=== PATIENT | male | born 1960 | race Caucasian/White ===

== ENCOUNTER 2020-05-16 07:24 | Day surgery (SDC) | payer OTHER ==
--- NOTE | 2020-05-12 12:23 | RAD REPORT ---
EXAM DESCRIPTION: Jayashree Sue (2 Views)05/12/2020 12:16 pm CLINICAL HISTORY: Preop for hernia repair COMPARISON: 2009 FINDINGS: The lungs appear clear of acute infiltrate. The heart is normal size IMPRESSION: No acute abnormalities displayed
[2020-05-12 12:45] LABS: Absolute Lymphocytes (CBC) 1.4 K/uL (0.7-4.9); Basophils % 1.3 % (0-1.3); Hematocrit 43.5 % (39.6-49.0); Lymphocytes % 22.2 % (15.3-44.8); MPV 9.6 fL (7.6-11.3); RBC Red Blood Cell Count 4.96 M/uL (4.33-5.43)
[2020-05-12 12:59] LABS: Potassium 4.1 mmol/L (3.5-5.1)
[2020-05-16] MEDS ORDERED: Ringers Lactate 1,000 ML IV ONE (07:46)
[2020-05-16] MEDS ORDERED: CEFAZOLIN/SWI 1gm 1 GM/10 ML SYR ONE (08:20)
[2020-05-16] MEDS ORDERED: FENTANYL CITR 100 MCG/2 ML ONE (08:32)
[2020-05-16] MEDS ORDERED: propofoL 200 MG/20 ML VIAL IV ONE (08:32)
[2020-05-16] MEDS ORDERED: GLYCOPYRROLATE 0.2 MG/ML SYR ONE (08:33)
[2020-05-16] MEDS ORDERED: MIDAZOLAM HCL 2 MG/2 ML INJ ONE (08:33)
[2020-05-16] MEDS ORDERED: EPHEDRINE SULF 50 MG/ML VIAL ONE (08:33)
[2020-05-16] MEDS ORDERED: LIDOCAINE 2% MPF 5 ML VIAL ONE (08:33)
--- NOTE | 2020-05-16 09:04 | P.BOP ---
Preoperative diagnosis: incarcerated ulcerated infected umbilical hernia Postoperative diagnosis: same Primary procedure: Open repair of incarcerated ulcerated umbilical hernia [employer] Drill Operator: NADEEM MERRILL (WASTE HAND) Estimated blood loss: <10cc Specimen: umbilical hernia sac and content Findings: ulcerated umbilical hernia with incarcerated omentum Anesthesia: General Complications: None Transferred to: Recovery Room Condition: Good
[2020-05-16] MEDS: HYDROMORPHONE HCL 1 MG/ML INJ ONE ×4 (09:21→09:40)
[2020-05-16] MEDS ORDERED: CODEINE 30MG/APAP 300MG TAB ONE (10:16)
[2020-05-16] MEDS ORDERED: ONDANSETRON 4 MG/2 ML VIAL ONE (11:10)
--- NOTE | 2020-05-16 11:44 | OP ---
Date of Procedure: 05/16/2020 Surgeon: Luís Reynoso MD Hog Sticker: Lary Raza. Preoperative Diagnosis: Incarcerated, ulcerated, infected umbilical hernia. Postoperative Diagnosis: Incarcerated, ulcerated, infected umbilical hernia. Procedure: Open repair of incarcerated, ulcerated, umbilical hernia. Specimen: Umbilical hernia sac and content including the ulceration of the skin. Finding: Patient has an incarcerated umbilical hernia, the pressure of that broke the skin causing u lceration and erythema over the area. Anesthesia: General plus local. Indications: This is a case of a 60-year-old who comes to us with several problems. He has umbilica l hernia. He has incarceration. He has also cellulitis over the area and ulceration. It is tender, and needs to be excised and repaired. The patient was placed on antibiotics for the last few days t hat has not changed much of yet. So, we proceed accordingly. The benefits, alternatives, and risks of repair of an incarcerated umbilical hernia fully explained which include, but not limited to infec tion, bleeding, damage to adjacent structures, anesthesia complication, recurrence, [place] and even . He also understands this may not relieve symptoms. He might need more than one surgical intervent ion. He understands we might have to use mesh in that area due to the area that is not completely cl amado. There is an extra risks of the mesh placement, which include also possible infection and contam ination of the mesh if used. He understand to be compliant with treatment after the surgery. He sig hari a consent. Description Of Procedure: The patient was brought to the operating room, placed in supine position. Anesthesia was done without complication. Abdominal area was prepped and draped in usual sterile fa shion. A time-out was called. Local anesthesia was applied followed by sharp incision of the skin o n the periumbilical region. Now, some of the skin have to be excised since there was an ulceration o f the skin, so we have to do a wedge incision to include that ulceration and that skin was removed. This allowed me to go to the area of the subcutaneous tissue. Area was profusely irrigated. After t hat, we noticed to have a hernia sac with a large amount of omentum present. I proceeded then to ope n the area and clamp the omentum and ligate omentum between clamps and tie with 3-0 chromic and reduc ed it once we make sure there was no bleeding from that omentum. The rest of the omentum looks viabl e. Hernia sac and omentum were removed. Hernia sac edges were clean and we noticed to be coming tog ether without resistance, so we did not have to use mesh in that area. We proceeded to close the are a in [id number] fashion and #1 Prolene multiple times and also a combination of 2-0 Prolene. Ar ea was irrigated. Subcutaneous tissue was closed with 3-0 chromic and the skin approximated with sta ples. Sponge count and instrument counts correct. Triple antibiotics put over the staple line. The patient sent to Recovery in stable condition. BRAXTON/ERICH Voice ID: [id number] Report ID: [id number]
--- NOTE | 2020-05-16 11:50 | DS ---
Diagnosis: Incarcerated and ulcerated infected umbilical hernia. Procedure: Open repair of incarcerated umbilical hernia. Disposition: Home. Activity: As tolerated, no heavy lifting. Plan: Follow up in my office in 1 week. Call for appointment [phone]. Keep area dry for 48 hours, t hen shower. Remove cotton ball and gauze from the area, clean with soap and water. Apply Bactroban ointment and then redress the area once again with cotton ball and gauze daily. BRAXTON/ERICH Voice ID: [id number] Report ID: [id number]
[2020-05-16 12:02] VITALS: BP 116/80; TEMP 97.2; O2SAT 96
== END 2020-05-16 11:55 | disposition home or self-care (01) ==
LOC: OR 07:24
PROVIDERS: ATTEND Surgery
PROC: 0WQF0ZZ Repair Abdominal Wall, Open Approach (ICD-10-PCS; principal; 2020-05-16 08:30)
DX: K42.0 Umbilical hernia with obstruction, without gangrene (principal); L98.499 Non-pressure chronic ulcer of skin of other sites with unspecified severity; Z20.828 Contact with and (suspected) exposure to other viral communicable diseases
CPT/HCPCS: 36415; 71046; 80048; 85025; 88302; 93005; J0690; J1170; J2250; J2405; J2704; J3010; J7120; U0002